=== PATIENT | male | born 1955 | race Caucasian/White ===

== ENCOUNTER → 2016-04-04 | Outpatient (REF) | payer BC ==
[~2016-04-04] MED LIST: ACET325S2 PO; ANTI2CAP PO; CEPH500C PO; CIPR500T89 PO; IBUPPOW25; LOMO2.5T PO; LOPE2TAB PO; MORP-38 PO; ONDA8TAB8 PO; PERCOCET PO; SENN1TAB2 PO
== END | disposition home or self-care (01) ==
LOC: M LAB REF 12:28
PROVIDERS: ATTEND Internal Medicine Medical Oncology
DX: C80.1 Malignant (primary) neoplasm, unspecified (principal)

== ENCOUNTER → 2016-04-18 | Outpatient (REF) | payer BC ==
[2016-04-19 09:52] LABS: CARCINOEMBRYONIC ANTIGEN 0.9 NG/ML (<2.5)
== END | disposition home or self-care (01) ==
LOC: M LAB REF 12:48
PROVIDERS: ATTEND Internal Medicine Medical Oncology
DX: C25.9 Malignant neoplasm of pancreas, unspecified (principal); C78.6 Secondary malignant neoplasm of retroperitoneum and peritoneum

== ENCOUNTER → 2016-04-27 | Outpatient (CLI) | payer BC ==
--- NOTE | 2016-04-27 19:51 | REP ---
Whole body PET CT scan: Comparisons are PET CT scans dated 12/23/2015 and 09/09/2015. There are also comparison CTs of the abdomen and pelvis dated 02/08/2016 and 07/30/2015. Whole body PET CT scan is performed from skull base to the upper thighs. Neck and supraclavicular areas: There are no hypermetabolic foci. Chest: There are no hypermetabolic foci. Abdomen, pelvis and upper thighs: There are no hypermetabolic foci. On the CT included with the scan there is no ascites on the current study. The mesenteric induration identified previously has significantly improved. There is no adenopathy. There is significantly increased uptake throughout the skeleton compatible with marrow stimulation. Impression: There are no hypermetabolic foci. There is increased uptake throughout the entire skeleton compatible with marrow stimulation. The study is performed with 10 mCi of F 18 FDG Signed by Maxim Hong MD 04/27/2016 07:43 P
== END ==
LOC: M RAD 11:05
PROVIDERS: ATTEND Internal Medicine Medical Oncology
DX: C25.9 Malignant neoplasm of pancreas, unspecified (principal)
CPT/HCPCS: 78815; A9552

== ENCOUNTER → 2016-06-13 | Outpatient (CLI) | payer BC ==
[~2016-06-13] MED LIST changes: +GASTROGRAFIN SOLUTION 30ML (Q9963) As Ordered ONE; +ISOVUE-370 76% 100ML VIAL (Q9967) As Ordered ONE
--- NOTE | 2016-06-13 15:08 | REP ---
CT of the abdomen and pelvis for restaging of metastatic adenocarcinoma. The patient, according to a PET scan on 04/27/2016 has pancreatic adenocarcinoma. Comparison is a CT scan of 02/08/2016. Studies performed without and with IV contrast. Bowel contrast is also utilized. The visualized lower lung taylor demonstrate no nodules or masses effusions. The hepatic parenchyma is homogeneous on both phases of the study. No hepatic metastases are identified. The gallbladder is nondistended but otherwise unremarkable. No pancreatic mass is identified. There are occasional normal size mesenteric nodes. The spleen demonstrates a mottled uptake pattern compatible with imaging during the arterial phase of enhancement. The adrenals, kidneys and abdominal aorta are unremarkable. There is no retroperitoneal adenopathy. There is induration adjacent to the anterior peritoneum compatible with omental implants. This has also been present previously. There is a focal some loop of small bowel in the mid abdomen on the right demonstrating focal bowel wall thickening, possibly enteritis. The remainder of the small bowel is nondistended and otherwise unremarkable. The previous small bowel obstruction is no longer present. Pelvis: Previously there was a right inguinal hernia containing a loop of small bowel. This is no longer present. The bladder is unremarkable. There is no pelvic adenopathy or ascites. The bladder is unremarkable. The a pelvic bowel loops are unremarkable. Impression: There is no ascites. There are multiple mesenteric nodes all normal size. There are foci of soft tissue density along the anterior peritoneum compatible with omental implants. No hepatic metastases are identified. No pancreatic mass is identified. There is a focal loop of small bowel in the mid abdomen on the right demonstrating wall thickness compatible with focal enteritis. No lytic, blastic or destructive skeletal changes are identified. There is degenerative disc disease and grade 1 spondylolisthesis of L5 and S1, there are bilateral pars defects at L5. Signed by Maxim Hong MD 06/13/2016 03:00 P
== END ==
LOC: M RAD 08:57
PROVIDERS: ATTEND Internal Medicine Medical Oncology
DX: C79.9 Secondary malignant neoplasm of unspecified site (principal)
CPT/HCPCS: 74178; 82378; Q9963; Q9967

== ENCOUNTER → 2016-07-21 | Outpatient (REF) | payer BC ==
[~2016-07-21] MED LIST changes: -GASTROGRAFIN SOLUTION 30ML (Q9963) As Ordered ONE; -ISOVUE-370 76% 100ML VIAL (Q9967) As Ordered ONE
[2016-07-21 19:55] LABS: ANION GAP 4 MEQ/L (8-16); BASO % 0.6 % (0.0-1.0); BLOOD UREA NITROGEN 11 MG/DL (7-18); CALCIUM LEVEL 8.9 MG/DL (8.8-10.2); CARBON DIOXIDE LEVEL 30 MEQ/L (21-32); CHLORIDE LEVEL 107 MEQ/L (98-107); CREATININE FOR GFR 0.94 MG/DL (0.70-1.30); EOS # 0.1 K/mm3 (0.0-0.50); EOS % 2.5 % (0.0-3.0); GLOMERULAR FILTRATION RATE > 60.0 (>49); GLUCOSE, FASTING 90 MG/DL (80-110); LARGE UNSTAINED CELL # 0.1 K/mm3 (0.0-0.4); LARGE UNSTAINED CELL % 1.3 % (0.0-4.0); LYMPH % 17.4 % (24.0-44.0); MEAN CORPUSCULAR HGB CONC 32.2 g/dl (32.0-36.5); MEAN CORPUSCULAR VOLUME 93.4 fl (80.0-96.0); MONO # 0.3 K/mm3 (0.0-0.8); MONO % 5.4 % (0.0-5.0); NEUTROPHILS # 4.1 K/mm3 (1.8-7.7); NEUTROPHILS % 72.8 % (36.0-66.0); PLATELET COUNT, AUTOMATED 250 k/mm3 (150-450); POTASSIUM SERUM 4.6 MEQ/L (3.5-5.1); RED CELL DISTRIBUTION WIDTH 12.2 % (11.5-14.5); SODIUM LEVEL 141 MEQ/L (136-145); WHITE BLOOD COUNT 5.6 K/mm3 (4.0-10.0)
== END ==
LOC: M LAB REF 09:34
PROVIDERS: ATTEND Physician Assistant
DX: R19.7 Diarrhea, unspecified (principal)

== ENCOUNTER 2016-08-24 11:34 | Inpatient (IN) | payer BC ==
[~2016-08-24] VITALS: Ht 175.3 cm; Wt 65.8 kg
[2016-08-24] MEDS: MORPHINE 4 MG/ML 1ML SYRINGE IV PRN ×2 (12:00→12:34)
[2016-08-24] MEDS ORDERED: ONDANSETRON 4MG/2ML VIAL (J2405) IV ONE (12:00)
[2016-08-24] MEDS ORDERED: GABA-279 (12:03)
[2016-08-24 12:21] LABS: BASO % 0.4 % (0.0-1.0); EOS # 0.1 K/mm3 (0.0-0.50); EOS % 1.1 % (0.0-3.0); LARGE UNSTAINED CELL # 0.1 K/mm3 (0.0-0.4); LARGE UNSTAINED CELL % 0.6 % (0.0-4.0); LYMPH # 0.6 K/mm3 (1.5-4.5); LYMPH % 6.4 % (24.0-44.0); MEAN CORPUSCULAR HEMOGLOBIN 29.8 pg (27.0-33.0); MEAN CORPUSCULAR HGB CONC 32.7 g/dl (32.0-36.5); MONO # 0.2 K/mm3 (0.0-0.8); MONO % 2.9 % (0.0-5.0); NEUTROPHILS # 7.1 K/mm3 (1.8-7.7); NEUTROPHILS % 88.6 % (36.0-66.0); PLATELET COUNT, AUTOMATED 241 k/mm3 (150-450); RED CELL DISTRIBUTION WIDTH 13.8 % (11.5-14.5)
[2016-08-24 12:22] LABS: ANION GAP 9 MEQ/L (8-16); BLOOD UREA NITROGEN 11 MG/DL (7-18); CALCIUM LEVEL 9.9 MG/DL (8.8-10.2); CARBON DIOXIDE LEVEL 25 MEQ/L (21-32); CHLORIDE LEVEL 105 MEQ/L (98-107); CREATININE FOR GFR 0.96 MG/DL (0.70-1.30); GLOMERULAR FILTRATION RATE > 60.0 (>49); GLUCOSE, FASTING 130 MG/DL (80-110); POTASSIUM SERUM 3.7 MEQ/L (3.5-5.1); SODIUM LEVEL 139 MEQ/L (136-145)
[2016-08-24 12:23] LABS: INR 0.93
[2016-08-24 12:24] LABS: ALBUMIN 3.6 GM/DL (3.2-5.2); ALBUMIN/GLOBULIN RATIO 0.88 (1.00-1.93); BILIRUBIN,DIRECT 2.9 MG/DL (0.0-0.2); BILIRUBIN,TOTAL 3.8 MG/DL (0.2-1.0); TOTAL PROTEIN 7.7 GM/DL (6.4-8.2)
--- NOTE | 2016-08-24 12:47 | REP ---
REASON: Possible obstruction. COMPARISON: 02/10/2016 Frontal view is unchanged from the prior exam. The tip of the central venous catheter remains in the superior vena cava. There is no free subdiaphragmatic air. There are no acute patchy opacities or pleural effusions. The intestinal gas pattern is nonspecific. There is no evidence of free air or intestinal obstruction. There is no significant change in appearance of the osseous structures. IMPRESSION: Unremarkable nondiagnostic abdominal series with findings as described above. Signed by Deepak Birmingham DO 08/24/2016 01:47 P
[2016-08-24] MEDS ORDERED: GASTROGRAFIN SOLUTION 30ML (Q9963) PO ONE ×2 (13:05→13:35)
[2016-08-24] MEDS ORDERED: ISOVUE-370 76% 100ML VIAL (Q9967) As Ordered ONE (14:32)
--- NOTE | 2016-08-24 17:19 | REP ---
RIGHT UPPER QUADRANT ULTRASOUND: Real-time sonographic evaluation of the right upper quadrant is performed. The gallbladder is distended with mild diffuse wall thickening. In the region of the gallbladder neck there is focal irregular wall thickening with possible underlying soft-tissue nodule or stone in that region. Common bile duct is not dilated at 4 mm. Liver is homogenous and grossly unremarkable. Visualized pancreas is grossly unremarkable in the region of the head of the pancreas, the body and tail is not well seen. The right kidney demonstrates no hydronephrosis with a normal size of 10.2 cm in length. Tiny amount of perihepatic fluid is seen. IMPRESSION: Mild diffuse gallbladder wall thickening with focal irregular soft-tissue thickening in the region of the neck of gallbladder. A soft-tissue nodule or stone can not be excluded in that region. Common bile duct not dilated. Very mild perihepatic fluid. Signed by Maxim Gonzales MD 08/25/2016 05:12 P
[2016-08-24] MEDS ORDERED: PIPERACILLIN/TAZOBACTAM SOD 3.375 GM in D5W MINI-BAG PLUS 50 ML IV ONE (17:30)
[2016-08-24] MEDS ORDERED: NS 1,000 ML IV SCH (17:30)
[2016-08-24] MEDS ORDERED: GABA-282 PO (17:44)
[2016-08-24] MEDS ORDERED: ACETAMINOPHEN TAB 650MG DOSE (2X325MG) PO PRN (20:15)
[2016-08-24] MEDS ORDERED: MORPHINE 15 MG SA TAB PO PRN (20:15)
[2016-08-24] MEDS ORDERED: NORCO, ANEXSIA 5/325MG TABLET (HYDROcodone/ACETAMINOPHEN) PO PRN (20:15)
[2016-08-24] MEDS ORDERED: ONDANSETRON 4MG/2ML VIAL (J2405) IV PRN (20:15)
[2016-08-24] MEDS: LR 1,000 ML IV SCH ×2 (20:46→23:21)
[2016-08-24 22:50] VITALS: BP 127/85
[2016-08-24] MEDS: SENOKOT S TAB PO SCH (22:50)
--- NOTE | 2016-08-24 23:10 | REPUSA ---
MRI of the abdomen without contrast Clinical History: ancreatic cancer. Technique: Multiecho, Multiplanar MRI images of the abdomen were obtained without administration of c ontrast However, patient could not tolerate the complete procedure, and ended the procedure abruptly. Therefore this is a limited study. Comparison: None. Findings: Limited views of the liver, spleen, and kidneys are unremarkable. The pancreas is poorly v isualized because of motion artifact. There is moderate amount of ascites seen in the upper abdomen b ilaterally. Fluid is seen around the gallbladder. No gallstones are identified. Impression: 1. Limited study, patient terminated the study prematurely. 2. The pancreas is poorly visualized because of motion artifact. 3. Bilateral upper abdominal ascites.
[2016-08-24] MEDS: metroNIDAZOLE 500 MG in APPROPRIATE DILUENT 1 EA IV SCH (23:20)
[2016-08-24] MEDS: GABAPENTIN 300 MG CAP PO SCH (23:21)
[2016-08-24] MEDS: HEPARIN SOD (PORCINE) 5000 UNITS/ML VIAL SC SCH (23:21)
[2016-08-25] MEDS: CIPROFLOXACIN 400 MG in APPROPRIATE DILUENT 1 EA IV SCH ×2 (01:24→13:13)
[2016-08-25] MEDS: HEPARIN SOD (PORCINE) 5000 UNITS/ML VIAL SC SCH ×3 (05:14→23:01)
[2016-08-25 06:20] VITALS: BP 122/72
--- NOTE | 2016-08-25 07:54 | REP ---
CT abdomen and pelvis with IV and bowel contrast, multiphase scanning, initially during the arterial phase of enhancement and later during the equilibrium phase of enhancement. Bowel contrast is utilized on both phases. Comparisons are 06/13/2016 and 07/30/2015. There is a small volume of ascites surrounding the upper pole of the spleen and stomach and along the anterior margin of the liver. The hepatic parenchyma is homogeneous. The gallbladder is unremarkable. I suspect the spleen is enlarged. The left hemidiaphragm is elevated and the upper pole of the spleen is not included in the scan I am unable to accurately measure the craniocaudad length of the spleen. The head, body and tail of pancreas are normal size. No pancreatic masses are identified. The adrenals and kidneys are unremarkable. The abdominal aorta is unremarkable. There is faintly visible induration of the omental fat compatible with omental metastatic implants, however this has significantly decreased from 07/30/2015. There is no bowel distension or obstruction. Pelvis: There is a small volume of ascites in a left inguinal hernia. The pelvic bowel loops are unremarkable. There is no pelvic adenopathy. There are no lytic, blastic or destructive skeletal changes. There is bilateral L5 spondylolysis with grade 1 L5 spondylolisthesis accompanied by degenerative disc disease at L5 S1. Impression: The patient's known omental implants have significantly improved from 07/30/2015. There is a small volume of ascites surrounding the upper pole of the spleen and the stomach and anterior margin of the liver. I suspect there is splenomegaly, however the upper pole of the spleen is not included in the scan as it is underneath the elevated left hemidiaphragm. No retroperitoneal or pelvic adenopathy is identified. There is a small volume of ascites entering a left inguinal hernia. Bilateral L5 spondylolysis with grade 1 L5 anterolisthesis. No bowel distension or obstruction. Signed by Maxim Hong MD 08/25/2016 07:44 A
[2016-08-25 08:17] LABS: MEAN CORPUSCULAR HEMOGLOBIN 30.2 pg (27.0-33.0); MEAN CORPUSCULAR HGB CONC 33.1 g/dl (32.0-36.5); MEAN CORPUSCULAR VOLUME 91.2 fl (80.0-96.0); RED CELL DISTRIBUTION WIDTH 14.1 % (11.5-14.5)
[2016-08-25] MEDS: PANTOPRAZOLE 40MG INJ (PROTONIX) (C9113) IV SCH (08:42)
[2016-08-25 08:43] LABS: ALBUMIN 2.9 GM/DL (3.2-5.2); ALBUMIN/GLOBULIN RATIO 0.91 (1.00-1.93); ALKALINE PHOSPHATASE 778 U/L (45-117); ALT/SGPT 379 U/L (12-78); ANION GAP 7 MEQ/L (8-16); AST/SGOT 271 U/L (15-37); BILIRUBIN,DIRECT 2.6 MG/DL (0.0-0.2); BILIRUBIN,TOTAL 3.7 MG/DL (0.2-1.0); BLOOD UREA NITROGEN 10 MG/DL (7-18); CALCIUM LEVEL 8.7 MG/DL (8.8-10.2); CARBON DIOXIDE LEVEL 28 MEQ/L (21-32); CHLORIDE LEVEL 105 MEQ/L (98-107); CREATININE FOR GFR 0.89 MG/DL (0.70-1.30); GLOMERULAR FILTRATION RATE > 60.0 (>49); GLUCOSE, FASTING 94 MG/DL (80-110); MAGNESIUM LEVEL 1.9 MG/DL (1.8-2.4); SODIUM LEVEL 140 MEQ/L (136-145); TOTAL PROTEIN 6.1 GM/DL (6.4-8.2)
[2016-08-25] MEDS: GABAPENTIN 300 MG CAP PO SCH ×3 (08:43→20:22)
[2016-08-25] MEDS: SENOKOT S TAB PO SCH ×2 (08:43→20:22)
[2016-08-25] MEDS: LR 1,000 ML IV SCH ×2 (08:44→19:59)
[2016-08-25] MEDS: metroNIDAZOLE 500 MG in APPROPRIATE DILUENT 1 EA IV SCH ×3 (08:44→23:00)
[2016-08-25] MEDS: KETOROLAC 30 MG/ML VIAL (J1885) IV PRN (13:13)
[2016-08-25 14:58] VITALS: BP 140/87
[2016-08-25 21:00] VITALS: BP 125/84
[2016-08-26] MEDS: CIPROFLOXACIN 400 MG in APPROPRIATE DILUENT 1 EA IV SCH (00:30)
[2016-08-26] MEDS: HEPARIN SOD (PORCINE) 5000 UNITS/ML VIAL SC SCH ×5 (05:03→21:18)
[2016-08-26] MEDS: LR 1,000 ML IV SCH (05:03)
[2016-08-26 05:17] LABS: MEAN CORPUSCULAR HEMOGLOBIN 30.2 pg (27.0-33.0); MEAN CORPUSCULAR HGB CONC 33.5 g/dl (32.0-36.5); MEAN CORPUSCULAR VOLUME 90.2 fl (80.0-96.0); RED CELL DISTRIBUTION WIDTH 14.1 % (11.5-14.5); WHITE BLOOD COUNT 4.6 K/mm3 (4.0-10.0)
[2016-08-26 05:37] LABS: ALBUMIN 2.6 GM/DL (3.2-5.2); ALBUMIN/GLOBULIN RATIO 0.81 (1.00-1.93); ALKALINE PHOSPHATASE 698 U/L (45-117); ALT/SGPT 296 U/L (12-78); ANION GAP 9 MEQ/L (8-16); AST/SGOT 177 U/L (15-37); BILIRUBIN,TOTAL 3.2 MG/DL (0.2-1.0); BLOOD UREA NITROGEN 12 MG/DL (7-18); CALCIUM LEVEL 8.5 MG/DL (8.8-10.2); CARBON DIOXIDE LEVEL 26 MEQ/L (21-32); CHLORIDE LEVEL 106 MEQ/L (98-107); CREATININE FOR GFR 0.87 MG/DL (0.70-1.30); GLOMERULAR FILTRATION RATE > 60.0 (>49); GLUCOSE, FASTING 92 MG/DL (80-110); MAGNESIUM LEVEL 1.7 MG/DL (1.8-2.4); POTASSIUM SERUM 3.5 MEQ/L (3.5-5.1); SODIUM LEVEL 141 MEQ/L (136-145); TOTAL PROTEIN 5.8 GM/DL (6.4-8.2)
[2016-08-26 06:05] VITALS: BP 121/77
--- NOTE | 2016-08-26 08:03 | REP ---
Radionuclide biliary scan: Imaging is performed of 5-minute intervals for 60 minutes after intravenous infusion of mebrofenin radiolabeled with 6.3 mCi of technetium 99m. There is biliary to bowel transit at 20 minutes. Gallbladder radiolabeling can be seen at 30 minutes. There is no hepatic washout during the initial 60 minutes of imaging. Therefore, delayed images are performed at 3.5 hours. On the 3.5 hour delayed images there is hepatic washout and radiolabeling of multiple bowel loops. Impression: Delayed hepatic washout suggestive of hepatocellular disease. There is no evidence of cystic duct or common duct obstruction. Signed by Maxim Hong MD 08/26/2016 07:55 A
[2016-08-26] MEDS: GABAPENTIN 300 MG CAP PO SCH ×3 (08:29→21:16)
[2016-08-26] MEDS: metroNIDAZOLE 500 MG in APPROPRIATE DILUENT 1 EA IV SCH (08:29)
[2016-08-26] MEDS: SENOKOT S TAB PO SCH ×3 (08:29→21:16)
[2016-08-26] MEDS: PANTOPRAZOLE 40MG INJ (PROTONIX) (C9113) IV SCH (08:29)
[2016-08-26] MEDS: MAG SULF 1GM/100ML (MAG RUN) 1 GM in APPROPRIATE DILUENT 1 EA IV SCH ×3 (11:04→13:25)
[2016-08-26 14:00] VITALS: BP 160/86
[2016-08-26 21:20] VITALS: BP 137/90
[2016-08-27] MEDS: HEPARIN SOD (PORCINE) 5000 UNITS/ML VIAL SC SCH (05:00)
[2016-08-27 05:40] VITALS: BP 130/88
[2016-08-27] MEDS: KETOROLAC 30 MG/ML VIAL (J1885) IV PRN (06:20)
[2016-08-27 06:30] LABS: MEAN CORPUSCULAR HEMOGLOBIN 30.5 pg (27.0-33.0); MEAN CORPUSCULAR VOLUME 89.9 fl (80.0-96.0); RED CELL DISTRIBUTION WIDTH 14.2 % (11.5-14.5); WHITE BLOOD COUNT 5.2 K/mm3 (4.0-10.0)
[2016-08-27 06:59] LABS: ALBUMIN 2.8 GM/DL (3.2-5.2); ALBUMIN/GLOBULIN RATIO 0.85 (1.00-1.93); ALKALINE PHOSPHATASE 714 U/L (45-117); ALT/SGPT 295 U/L (12-78); ANION GAP 7 MEQ/L (8-16); AST/SGOT 182 U/L (15-37); BILIRUBIN,TOTAL 4.2 MG/DL (0.2-1.0); BLOOD UREA NITROGEN 8 MG/DL (7-18); CALCIUM LEVEL 8.5 MG/DL (8.8-10.2); CARBON DIOXIDE LEVEL 27 MEQ/L (21-32); CHLORIDE LEVEL 106 MEQ/L (98-107); CREATININE FOR GFR 0.94 MG/DL (0.70-1.30); GLOMERULAR FILTRATION RATE > 60.0 (>49); GLUCOSE, FASTING 111 MG/DL (80-110); MAGNESIUM LEVEL 2.3 MG/DL (1.8-2.4); POTASSIUM SERUM 3.9 MEQ/L (3.5-5.1); SODIUM LEVEL 140 MEQ/L (136-145); TOTAL PROTEIN 6.1 GM/DL (6.4-8.2)
[2016-08-27] MEDS: GABAPENTIN 300 MG CAP PO SCH (08:12)
[2016-08-27] MEDS: PANTOPRAZOLE 40MG INJ (PROTONIX) (C9113) IV SCH (08:12)
[2016-08-27] MEDS: SENOKOT S TAB PO SCH (08:12)
--- NOTE | 2016-08-29 12:16 | DSES ---
DATE OF ADMISSION: 08/24/2016 DATE OF DISCHARGE: 08/27/2016 ADMISSION DIAGNOSIS: Obstructive jaundice. DISCHARGE DIAGNOSIS: Hepatocellular disease. HOSPITAL COURSE: The patient is a 61-year-old male presented with signs and consistent with obstructive jaundice with elevated liver enzymes, bilirubins and questionable mass versus stone in the neck of the gallbladder with gallbladder wall thickening. He was admitted to hospital, treated empirically with IV fluids, antibiotics and kept nothing by mouth. We checked an MRCP. However, he was unable to tolerate the MRCP. Therefore, the next day 08/25/2016 he was sent for a HIDA scan to evaluate for common bile duct versus cystic duct obstructions. The HIDA scan was negative for any signs of obstruction. However, it did show that there was poor washout from the liver showing signs of hepatocellular disease. Within the first 24 hours of stay, the patient's symptoms resolved as far as his pain and his nausea. He was having bowel movements without any difficulty. No problems with fevers or chills. We started him back on a clear liquid diet and advanced him as tolerated. He was started on a diet on 08/26/2016. However, he wanted to make sure that he could tolerate a full regular diet before being discharged home, which is why he waited until 08/27/2016 in the morning to go home. It is likely that this hepatocellular disease is not acute. It is likely chronic in nature, possibly related to his underlying disease versus a side effect from his chemo treatment. He had gastroenteritis on top of this that caused his acute onset of the pain and the nausea and the diarrhea. Now that all those symptoms have resolved, recommendation is to discharge home, stay way from any Tylenol or alcohol. Followup with his oncologist, Dr. Murguia for further outpatient treatment whether it be liver biopsy or testing as necessary.
--- NOTE | 2016-08-29 13:16 | HPE ---
DATE OF ADMISSION: 08/24/2016 CHIEF COMPLAINT: Abdominal pain. HISTORY OF PRESENT ILLNESS: The patient is a 61-year-old male with a history of adenocarcinoma of unknown primary, thought to be either pancreatic or gastric in nature, who came into emergency room with increasing right upper quadrant abdominal pain. Says it has been going on for a few days. He has had a little bit of nausea with it. No emesis. No changes in bowel or bladder habits, just a severe cramping pain that has been radiating around to his right side. Denies any recent alcohol usage. No change in medications. No recent travel. No sick contacts. No problems with emesis. He denies any association with food. He does have a history of adenocarcinoma of his abdomen and he is undergoing chemo with Dr. Murguia, his last therapy was about 4 months ago. He has not been on any steroids or any chemo since then. The plan was to repeat a CT scan within the next couple months and based on the disease at that time determine whether they should start another course of treatment or not. He has had improvement of his known metastatic disease from his previous treatments already. In the emergency room, he had a CT scan done, which did again show that he has had significant improvement of this disease; however, it also showed that he has some small amount of ascites around the upper pole of the spleen, the stomach and anterior liver. His labs on admission were elevated, as far as the liver function tests are concerned with elevated bilirubins, both direct and total, elevated AST, ALT, alkaline phosphatase and the lipase was normal. Because of these findings, they checked an ultrasound of the gallbladder, which did show mild diffuse gallbladder wall thickening, especially with an irregular soft tissue thickening in the neck of the gallbladder. No dilation of the common bile duct. Because of these findings I was called to evaluate for possible gallbladder disease. 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 PAST SURGICAL HISTORY: Negative. ALLERGIES: None. HOME MEDICATIONS: Please see medical record. SOCIAL HISTORY: Denies any drug, alcohol, tobacco. FAMILY HISTORY: Noncontributory. REVIEW OF SYSTEMS: Pertinent positives and negatives as stated in the history of present illness. PHYSICAL EXAMINATION GENERAL: Patient is alert and oriented times three. No acute distress. VITAL SIGNS: Temperature 98.6, pulse 74, respirations 20, blood pressure 135/83 , pulse ox 96% room air. HEENT: Pupils equal round react to light accommodation. HEART: S1, S2. Regular rate and rhythm. LUNGS: Clear to auscultation bilaterally. ABDOMEN: Soft, tender to palpation in the right upper quadrant. Localized guarding. No rebounding. No signs of generalized peritonitis. EXTREMITIES: No clubbing, cyanosis or edema. LABORATORY DATA: White count is 8, hemoglobin 14.7, platelets 241, total bilirubin 3.8, direct 2.9, AST 316, ALT 475, alk phosphatase 938, lipase 191. IMAGING STUDIES: Abdominal x-ray was unremarkable, nondiagnostic abdominal series CT of the abdomen and pelvis: Small volume ascites. Left inguinal hernia. No pelvic adenopathy. No lytic, blastic or obstructive skeletal changes. Bilateral L5 spondylosis. The patient's known omental implants have significantly improved from 07/30/2015. Small volume of ascites surrounding the upper pole of the spleen, the stomach, and the anterior margin of the liver. No retroperitoneal or pelvic adenopathy identified. There is small volume ascites and left inguinal hernia. No bowel distension or obstruction. Ultrasound showed mild diffuse gallbladder wall thickening with focal irregular soft tissue thickening in the region of the neck of the gallbladder, soft tissue nodule or stone could not be excluded. Common bile duct is not dilated. Very mild perihepatic fluid. 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 At this time, he has obstructive jaundice. Recommendation is to admit him, keep him nothing by mouth, place him on IV fluids and antibiotics. We will attempt to get abdominal MRCP to further evaluate the neck of the gallbladder to see whether this is related to a mass versus a stone possibly causing Mirizzi syndrome. The patient is not showing any signs of ascending cholangitis. He has no fevers. No elevated white count. We will continue to monitor him closely. If those do start to develop then we may need to get GI involved for possible ERCP. If his obstructive symptoms do not relieve soon, he may also be a candidate for a cholecystostomy tube. Due to his history of chemo and carcinomatosis, he would be a very poor candidate for surgical intervention unless it is absolutely necessary. For now, we will monitor him closely, treat medically and further recommendations to follow the MRCP MTDD
== END 2016-08-27 13:25 | disposition home or self-care (01) ==
LOC: M ED 12:52 → M ED INP 20:11 → M MSPAV 22:46
PROVIDERS: ADMIT Surgery; ATTEND Surgery
DX: K76.89 Other specified diseases of liver (principal); C79.89 Secondary malignant neoplasm of other specified sites; R18.8 Other ascites; K52.9 Noninfective gastroenteritis and colitis, unspecified; Z79.899 Other long term (current) drug therapy; Z79.891 Long term (current) use of opiate analgesic

== ENCOUNTER → 2016-09-05 | Outpatient (REF) | payer BC ==
[~2016-09-05] MED LIST changes: +GABA-279; +GABA-282 PO
== END ==
LOC: M LAB REF 12:31
PROVIDERS: ATTEND Internal Medicine Medical Oncology
DX: C79.9 Secondary malignant neoplasm of unspecified site (principal)

== ENCOUNTER → 2016-09-27 | Outpatient (REF) | payer BC ==
[2016-09-27 14:56] LABS: ALBUMIN 2.1 GM/DL (3.2-5.2); CALCIUM LEVEL 8.8 MG/DL (8.8-10.2); CREATININE FOR GFR 3.03 MG/DL (0.70-1.30); GLOMERULAR FILTRATION RATE 22.4 (>49)
[2016-09-27 15:52] LABS: ALBUMIN/GLOBULIN RATIO 0.66 (1.00-1.93); TOTAL PROTEIN 5.3 GM/DL (6.4-8.2)
[2016-09-27 15:53] LABS: POTASSIUM SERUM 2.6 MEQ/L (3.5-5.1)
== END ==
LOC: M LAB REF 13:51
PROVIDERS: ATTEND Internal Medicine Medical Oncology
DX: C80.1 Malignant (primary) neoplasm, unspecified (principal)